=== PATIENT | female | born 2000 | race African-American/Black ===

== ENCOUNTER 2020-11-05 02:16 | Emergency (ER) | payer MEDICAID, SELFPAY ==
--- NOTE | ~2020-11-05 | CT_ITS ---
EXAMINATION: CT HEAD WITHOUT CONTRAST CLINICAL INFORMATION: Altered mental status. COMPARISON: None TECHNIQUE: Contiguous axial imaging was performed from the skull base to vertex without intravenous administration of contrast. This CT examination was performed using dose optimization techniques as appropriate, variously including the following: *Automated exposure control *Adjustment of mA and/or kV according to patient size (this includes techniques or standardized protocols for targeted exams where dose is matched to indication/reason for exam; i.e. extremities or head) *Use of iterative reconstruction technique DLP: 633 mGy-cm FINDINGS: No intracranial hemorrhage, tumors or acute infarcts are visualized. The ventricles and sulci are normal in size and configuration. No focal parenchymal lesions the brain or abnormal extra-axial fluid collections are identified. No gross extra cranial soft tissue inflammatory changes are noted. The orbits and globes are normal in appearance. No significant opacification of the visualized paranasal sinuses, mastoid air cells and middle ear cavities is identified. CT/CT head/brain wo con IMPRESSION: Normal unenhanced CT the head.
[2020-11-05 02:25] VITALS: BP 121/67; PULSE 100; RESP 20; O2SAT 99; BMI 29.2
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
[2020-11-05 02:40] LABS: MANUAL DIFF FLAG NO
[2020-11-05 02:41] LABS: Basophils Absolute Auto 0.1 X10*3/uL (0.0-0.2); Basophils Percent Auto 0.8 % (0-2); Eosinophils Absolute Auto 0.1 X10*3/uL (0.0-0.4); Eosinophils Percent Auto 1.6 % (0-4); Hematocrit 41.2 % (37-47); Hemoglobin 14.6 g/dl (12.0-16.0); Imm Gran Abs Auto 0.02 X10*3/uL (0.00-0.03); Imm Gran Pct Auto 0.3 % (0.0-0.4); Lymphocytes Absolute Auto 2.2 X10*3/uL (1.2-4.9); Lymphocytes Percent Auto 29.3 % (20-40); Mean Corpuscular HGB Conc 35.4 g/dl (31.0-35.0); Mean Corpuscular Hemoglobin 31.1 pg (27.0-33.0); Mean Corpuscular Volume 87.8 fL (80-98); Mean Platelet Volume 10.7 fL (9.4-12.3); Monocytes Absolute Auto 0.4 X10*3/uL (0.1-1.2); Monocytes Percent Auto 5.4 % (2-11); Neutrophils Absolute Auto 4.8 X10*3/uL (2.0-8.3); Neutrophils Percent Auto 62.6 % (45-73); Platelet Count 324 X10*3/uL (160-400); Red Blood Count 4.69 X10*6/uL (4.20-5.50); Red Cell Distribution Width 12.8 % (11.0-16.0); White Blood Count 7.6 X10*3/uL (4.8-10.8)
[2020-11-05 02:53] LABS: Ethanol 198 mg/dL
[2020-11-05 03:01] LABS: Acetaminophen LAB < 1 mcg/mL (<30); Alanine Aminotransferase 12 U/L (0-31); Alkaline Phosphatase 58 U/L (39-117); Anion Gap 24 (12-20); Aspartate Amino Transferase 32 U/L (5-31); Bilirubin Direct 0.3 mg/dL (0.0-0.5); Bilirubin Total 0.6 mg/dL (0.0-1.0); Blood Urea Nitrogen 7 mg/dL (9-16); Calcium 9.6 mg/dL (8.4-10.2); Carbon Dioxide 13 mmol/L (22-29); Chloride 109 mmol/L (96-108); Creatinine Clr Calc Pharmacy 117.1; Estimated Glomerular Filt Rate > 60; Glucose Random 101 mg/dL (60-115); Magnesium 2.1 mg/dL (1.6-2.6); Potassium 3.4 mmol/L (3.3-5.1); Salicylate < 5.0 mg/dL (15-30); Sodium 143 mmol/L (135-145)
[2020-11-05 03:04] LABS: HCG Quantitative < 2 mIU/mL
[2020-11-05] MEDS: ondansetron HCL 4 MG/2 ML VIAL IVPUSH (03:09)
[2020-11-05] MEDS: Lactated Ringers 1,000 ML 999 ML IV ×2 (03:16→04:37)
[2020-11-05 03:22] VITALS: BP 107/62; PULSE 87; RESP 22; TEMP 36.1; O2SAT 98
[2020-11-05 03:24] LABS: COVID-19 Test Negative (Negative); IDNOW Serial# 55D5AD1C
[2020-11-05 04:25] VITALS: BP 85/46; PULSE 110; RESP 20
[2020-11-05 04:37] VITALS: BP 99/55
--- NOTE | 2020-11-05 04:54 | PC.NURSE ---
PATIENT WAKING, ASKING WHY SHES NOT SEEING THE DOGS IF SHES IN THE HOSPITAL , ASKING IF SHE MEANT TO SAY DOCTORS , NO YOU DUMB BITCH . PATIENT HAS EYES DARTING AROUND THE ROOM. CONFUSED. SCREAMING I AM BLIND . TRYING TO GET OUT OF BED. TO BETTER ENABLE PATIENT TO WAKE UP MORE CONTROLLED. STATING SHE IS SCARED AND ANXIOUS. GIVEN ADDITIONAL MEDICATION ATIVAN TO HELP WITH THE SIDE EFFECTS OF KETAMINE PATIENT WAKES. ATTEMPT MADE TO CONTACT BOYFRIEND.
[2020-11-05] MEDS: LORazepam 2 MG/ML VIAL 1 MG IVPUSH (04:57)
--- NOTE | 2020-11-05 08:05 | PC.NURSE ---
Pt sleeping, sitter at bedside.
--- NOTE | 2020-11-05 08:35 | PC.NURSE ---
PT AWAKE AND STATING SHE IS NAUSEA, REQUESTING HER IV BE REMOVED. SHE IS AGITATED AT TIMES BUT CURRENTLY REDIRECTABLE
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
--- NOTE | 2020-11-05 11:09 | PC.NURSE ---
Anita BROWN called at 1100 with an ETA of after 12pm for evaluation
[2020-11-05] MEDS: Ondansetron ODT 4 MG TAB.RAPDIS TRANSLINGU (11:18)
[2020-11-05 11:53] LABS: Blood Urea Nitrogen 5 mg/dL (9-16); Calcium 9.7 mg/dL (8.4-10.2); Carbon Dioxide 22 mmol/L (22-29); Chloride 110 mmol/L (96-108); Creatinine Clr Calc Pharmacy 131.6; Estimated Glomerular Filt Rate > 60; Glucose Random 105 mg/dL (60-115); Sodium 143 mmol/L (135-145)
--- NOTE | 2020-11-05 11:58 | PC.NURSE ---
patient recieved visit from boyfriend, security had discussed with this ghost writer about safety of client, and t/w asked client to commit to safe behavior with visit present (not attempt elopement)
[2020-11-05 12:03] LABS: Anion Gap 18 (12-20); Potassium 4.3 mmol/L (3.3-5.1)
--- NOTE | 2020-11-05 15:12 | PC.NURSE ---
PATIENT IS IN ROOM MEETING WITH [facility] CLINICIAN WAITING FOR DISPOSITION FROM [facility]. PATIENT IS CALM AND COOPERATIVE AT THIS TIME.
== END 2020-11-05 15:49 | disposition home or self-care (01) ==
PROVIDERS: Emergency Provider Emergency Medicine; PCP Pediatrics Adolescent Medicine
DX: S50.811A Abrasion of right forearm, initial encounter (principal); S50.812A Abrasion of left forearm, initial encounter; R45.851 Suicidal ideations; F10.129 Alcohol abuse with intoxication, unspecified; G44.309 Post-traumatic headache, unspecified, not intractable; Y90.6 Blood alcohol level of 120-199 mg/100 ml; W26.9XXA Contact with unspecified sharp object(s), initial encounter; Y93.9 Activity, unspecified; Y92.9 Unspecified place or not applicable; Y99.9 Unspecified external cause status; Z20.822 Contact with and (suspected) exposure to COVID-19; Z79.899 Other long term (current) drug therapy
CPT/HCPCS: 36415; 70450; 80048; 80076; 80143; 80179; 82077; 83735; 84702; 85025; 87635; 96361; 96372; 96374; 96375; 99285; J2060; J2405

== ENCOUNTER 2020-11-20 15:29 | Inpatient (IN) | payer MEDICAID, SELFPAY ==
--- NOTE | ~2020-11-20 | CT_ITS ---
EXAMINATION: CT HEAD WITHOUT CONTRAST CLINICAL INFORMATION: Migraine. COMPARISON: None TECHNIQUE: Contiguous axial imaging was performed from the skull base to vertex without intravenous administration of contrast. This CT examination was performed using dose optimization techniques as appropriate, variously including the following: *Automated exposure control *Adjustment of mA and/or kV according to patient size (this includes techniques or standardized protocols for targeted exams where dose is matched to indication/reason for exam; i.e. extremities or head) *Use of iterative reconstruction technique DLP: 669 mGy-cm FINDINGS: There is no evidence of acute intracranial hemorrhage or territorial infarction. No abnormal mass effect or midline shift is seen. [place] to white matter differentiation is well preserved. No extra-axial fluid collections are identified. The ventricles are normal in size. There is no abnormal attenuation within the brain parenchyma. The osseous structures and soft tissues are normal. There is a small polyp or retention cyst left sphenoid sinus. Rest of the paranasal sinuses and mastoid air cells are well-aerated. CT/CT head/brain wo con IMPRESSION: No acute intracranial process seen. There is small polyp or retention cyst left sphenoid sinus.
--- NOTE | ~2020-11-20 | CT_ITS ---
EXAMINATION: CT ABDOMEN AND PELVIS WITHOUT CONTRAST CLINICAL INFORMATION: Abdominal pain. Vomiting. Elevated WBC. COMPARISON: None TECHNIQUE: Multidetector volumetric imaging was performed from the superior aspect of the liver through the pubic symphysis. Sagittal and coronal reformatted images were obtained on the technologist's workstation. This CT examination was performed using dose optimization techniques as appropriate, variously including the following: *Automated exposure control *Adjustment of mA and/or kV according to patient size (this includes techniques or standardized protocols for targeted exams where dose is matched to indication/reason for exam; i.e. extremities or head) *Use of iterative reconstruction technique DLP: 623 mGy-cm FINDINGS: LUNG BASES: The visualized lung bases are unremarkable. LIVER, GALLBLADDER, AND BILIARY TREE: The liver is normal in size, shape, and attenuation. No focal hepatic lesion or biliary ductal dilatation is present. The gallbladder is unremarkable with no evidence of radiopaque gallstones, gallbladder wall thickening, or obvious pericholecystic inflammatory changes. PANCREAS: Unremarkable. SPLEEN: Unremarkable. ADRENAL GLANDS: Unremarkable. KIDNEYS AND URETERS: The kidneys are normal in size, shape, and attenuation. No hydronephrosis, hydroureter, or calculi seen. No perinephric stranding. BLADDER: Unremarkable. GASTROINTESTINAL TRACT: The small and large bowel are unremarkable. The appendix is unremarkable. ABDOMINAL WALL: No significant hernia is appreciated. LYMPH NODES: Normal. VASCULAR: Unremarkable. PELVIC VISCERA: The uterus and adnexa are unremarkable. OSSEOUS STRUCTURES: Unremarkable. CT/CT abdomen pelvis wo con IMPRESSION: No acute findings in the abdomen or pelvis. No inflammatory changes.
--- NOTE | ~2020-11-20 | US_ITS ---
EXAMINATION: US ABDOMEN LIMITED CLINICAL INFORMATION: Abdominal pain and vomiting. Evaluate for gallbladder disease.. COMPARISON: CT abdomen from 11/20/2020 TECHNIQUE: Real-time imaging of the right upper quadrant abdominal viscera. FINDINGS: PANCREAS: The pancreatic tail is obscured by bowel gas. The visualized portions the pancreas are normal. LIVER: Normal. Liver has normal size, contour and echotexture. No focal hepatic lesion or intrahepatic bile duct dilatation. GALLBLADDER: Normal. The gallbladder is physiologically distended without evidence of stones, sludge, polyps, wall thickening or pericholecystic fluid. COMMON BILE DUCT: Normal in caliber measuring 0.3 cm in diameter. RIGHT KIDNEY: Normal. No hydronephrosis. No renal calculi or focal parenchymal lesions. The kidney measures 10.6 cm in maximum dimension. FREE FLUID: None. US/US abdomen limited IMPRESSION: Normal ultrasound examination of the right upper quadrant. No evidence of cholelithiasis or cholecystitis.
--- NOTE | ~2020-11-20 | XR_ITS ---
EXAMINATION: XR CHEST CLINICAL INFORMATION: Sepsis. COMPARISON: None TECHNIQUE: Frontal view of the chest was obtained. FINDINGS: No significant abnormality is noted involving the heart, lungs, mediastinum, bony thorax or soft tissues. XR/XR chest 1V IMPRESSION: Unremarkable chest examination.
[2020-11-20 16:39] VITALS: BP 116/61; PULSE 93; RESP 18; TEMP 38.2; O2SAT 99; BMI 31.7
[2020-11-20 17:12] LABS: Basophils Absolute Auto 0.1 X10*3/uL (0.0-0.2); Basophils Percent Auto 0.3 % (0-2); Hemoglobin 14.7 g/dl (12.0-16.0); Imm Gran Abs Auto 0.09 X10*3/uL (0.00-0.03); Imm Gran Pct Auto 0.5 % (0.0-0.4); Lymphocytes Percent Auto 5.5 % (20-40); MANUAL DIFF FLAG SCAN; Mean Corpuscular HGB Conc 35.9 g/dl (31.0-35.0); Mean Corpuscular Volume 86.5 fL (80-98); Mean Platelet Volume 10.7 fL (9.4-12.3); Monocytes Absolute Auto 1.7 X10*3/uL (0.1-1.2); Monocytes Percent Auto 8.9 % (2-11); Neutrophils Percent Auto 84.8 % (45-73); Platelet Count 248 X10*3/uL (160-400); Red Blood Count 4.74 X10*6/uL (4.20-5.50); Red Cell Distribution Width 12.7 % (11.0-16.0); SCAN SMEAR FLAG 1; White Blood Count 18.9 X10*3/uL (4.8-10.8)
[2020-11-20 17:23] LABS: Appearance Urine CLOUDY; Color Urine BROWN; Glucose Urine UA NEG (NEG); Leukocyte Esterase Urine TRACE (NEG); Nitrite Urine NEG (NEG); Specific Gravity - Urine 1.025 (1.005-1.025); UACC Culture Trigger YES; Urine Blood TRACE (NEG); Urine Ketones 40 MG/DL (NEG); Urine Protein 3+ MG/DL (NEG-TRACE)
[2020-11-20 17:27] LABS: Alanine Aminotransferase 33 U/L (0-31); Alkaline Phosphatase 70 U/L (39-117); Anion Gap 17 (12-20); Aspartate Amino Transferase 35 U/L (5-31); Bilirubin Total 2.1 mg/dL (0.0-1.0); Blood Urea Nitrogen 6 mg/dL (9-16); Calcium 10.1 mg/dL (8.4-10.2); Carbon Dioxide 21 mmol/L (22-29); Chloride 99 mmol/L (96-108); Creatinine Clr Calc Pharmacy 102.4; Estimated Glomerular Filt Rate > 60; Glucose Random 123 mg/dL (60-115); Potassium 3.4 mmol/L (3.3-5.1); Sodium 134 mmol/L (135-145); Total Protein 8.4 g/dL (6.5-8.0)
[2020-11-20 17:35] LABS: UPreg QC Valid YES; Urine Pregnancy NEGATIVE (NEGATIVE)
[2020-11-20 17:54] LABS: SLIDE REVIEW VERIFIED
[2020-11-20 17:56] LABS: Influenza A PCR NEGATIVE (Negative); Influenza B PCR NEGATIVE (Negative); Resp Syncy Virus RNA Qual PCR NEGATIVE (Negative); SARS COV2 PCR INHOUSE NEGATIVE (Negative)
[2020-11-20 18:41] LABS: Bacteria Urine 1+ /LPF; RBC Urine 0-2 /HPF (0); Squamous Epithelial Cell Urine 1+ /LPF; WBC Urine 0-2 /HPF (0-4)
--- NOTE | 2020-11-20 19:26 | ED.GENADULT ---
HPI - General Adult General Chief complaint: General Medical Stated complaint: Body aches/Vomiting Time Seen by Provider: 11/20/20 19:24 Source: patient Mode of arrival: ambulatory Limitations: no limitations History of Present Illness HPI narrative: 20-year-old female came in for evaluation of vomiting and abdominal pain. Symptoms started 3 days ago, with abdominal pain described as diffuse abdominal pain, dull aching moderate in severity but 5/10, pain is constant, associated with nausea and vomiting and fever. No relieving factor, no aggravating factor, never had these symptoms in the past. Related Data Allergies Allergy/AdvReac Type Severity Reaction Status Date / Time No Known Allergies Allergy Verified 11/20/20 16:39 Review of Systems Review of Systems: All other systems are reviewed and are negative Constitutional: Reports as per HPI and Reports no additional constitutional complaints Eyes: Reports as per HPI and Reports no additional eye complaints Reports system reviewed and no additional complaints, except as documented Cardiovascular: Reports as per HPI and Reports no additional cardiovascular complaints Respiratory: Reports as per HPI and Reports no additional respiratory complaints Gastrointestinal: Reports as per HPI and Reports no additional gastrointestinal complaints Genitourinary: Reports no additional female genitourinary complaints Musculoskeletal: Reports no additional musculoskeletal complaints Skin/Breast: Reports system reviewed and no additional complaints, except as docu Psychiatric: Reports no additional psychiatric complaints Endocrine: Reports no additional endocrine complaints Hematologic/Lymphatic: Reports no additional hematologic/lymphatic complaints Allergic/Immunologic: Reports no additional allergic/immunologic complaints Reports system reviewed and no additional complaints, except as documented and Reports Abnormal speech present [facility] Social History Social History Alcohol intake: unknown Patient Tobacco Use Status: Tobacco use Unknown Advance Directives: No Advance Directives Information Provided: Yes Physical Exam Vital Signs: Vital Signs: Last Vital Signs Temp 100.8 F H 11/20/20 16:39 Pulse 93 11/20/20 16:39 Resp 18 11/20/20 16:39 BP 116/61 11/20/20 16:39 Pulse Ox 99 11/20/20 16:39 Body Mass Index 31.7 Vital signs have been reviewed as appeared to be correct. Blood pressure normal. Heart rate normal. Respiration rate normal. Temperature (low-grade fever) Oxygen saturation normal. Appearance: Alert. Oriented X3. No acute distress. Head: Normal external exam. Normocephalic. Atraumatic. No Wei signs noted. No raccoon eyes noted Eyes: PERRLA. EOMI. Conjunctiva and sclera normal. Eyelids normal. ENT: TM's Normal. Pharynx normal. Uvula midline. Moist mucous membranes. No trismus noted. No drooling noted. No muffled voice noted. Neck: Normal inspection. Neck supple. FROM. No adenopathy. Thyroid Normal. No meningeal signs. No neck mass noted. CVS: Normal heart rate and rhythm. Heart sound normal. No murmurs noted. Pulses normal throughout. Respiratory: No respiratory distress. Painless inspiration. Breath sounds normal. No wheezes/rales/rhonchi noted. Chest nontender. No accessory muscle usage noted or decreased air movement noted. Abdomen: Soft and nontender. Bowel sounds normal in all 4 quadrants. No distention noted. No organomegaly noted. No visible injury noted. Back: No CVA tenderness. Full range of motion noted. Skin: Skin warm and dry. Normal skin color. Normal skin turgor. No rashes/lesions/lacerations noted. Extremities: No lower extremity edema. Extremities exhibit normal range of motion. Extremities nontender. Neuro: Oriented X 3. Cranial nerve exam: II-XII are grossly intact No motor deficit. No sensory deficit. Reflexes normal. Course Course Course Narrative: Assessment and plan. 20-year-old female came in with intractable vomiting, leukocytosis. Otherwise negative abdominal CT/abdominal ultrasound for an acute intra-abdominal pathology. Patient could not tolerate an attempt for PO challenge patient could not tolerate. Will admit the patient for IV hydration and intractable vomiting. Medical Decision Making Lab Data Lab results reviewed: Yes I reviewed the patient's lab results. Result diagrams: 11/20/20 16:59 11/20/20 16:59 Labs: Lab Results 11/20/20 11/20/20 11/20/20 Range/Units 16:56 16:59 16:59 WBC 18.9 H (4.8-10.8) X10*3/uL RBC 4.74 (4.20-5.50) X10*6/uL Hgb 14.7 (12.0-16.0) g/dl Hct 41.0 (37-47) % MCV 86.5 (80-98) fL MCH 31.0 (27.0-33.0) pg MCHC 35.9 H (31.0-35.0) g/dl RDW 12.7 (11.0-16.0) % Plt Count 248 (160-400) X10*3/uL MPV 10.7 (9.4-12.3) fL Immature Gran % (Auto) 0.5 H (0.0-0.4) % Neut % (Auto) 84.8 H (45-73) % Lymph % (Auto) 5.5 L (20-40) % [place] % (Auto) 8.9 (2-11) % Eos % (Auto) 0.0 (0-4) % Baso % (Auto) 0.3 (0-2) % Lymph # (Auto) 1.0 L (1.2-4.9) X10*3/uL [place] # (Auto) 1.7 H (0.1-1.2) X10*3/uL Eos # (Auto) 0.0 (0.0-0.4) X10*3/uL Baso # (Auto) 0.1 (0.0-0.2) X10*3/uL Abs Immat Gran (auto) 0.09 H (0.00-0.03) X10*3/uL Absolute Neuts (auto) 16.0 H (2.0-8.3) X10*3/uL Absolute Nucleated RBC 0.000 (0.0-0.012) X10*3/uL Nucleated RBC % (auto) 0.0 (0.0-0.2) /100WBC Smear Tech's Comments VERIFIED Sodium 134 L (135-145) mmol/L Potassium 3.4 D (3.3-5.1) mmol/L Chloride 99 (96-108) mmol/L Carbon Dioxide 21 L (22-29) mmol/L Anion Gap 17 (12-20) BUN 6 L (9-16) mg/dL Creatinine 0.91 (0.5-1.4) mg/dL Estim Creat Clear Calc 102.4 Estimated GFR > 60 Random Glucose 123 H (60-115) mg/dL Calcium 10.1 (8.4-10.2) mg/dL Total Bilirubin 2.1 H (0.0-1.0) mg/dL AST 35 H (5-31) U/L ALT 33 H (0-31) U/L Alkaline Phosphatase 70 D (39-117) U/L Total Protein 8.4 H (6.5-8.0) g/dL Albumin 5.0 (3.5-5.0) g/dL Urine Color Urine Appearance Urine pH (5.0-8.0) Ur Specific [place] (1.005-1.025) Urine Protein (NEG-TRACE) MG/DL Urine Glucose (UA) (NEG) MG/DL Urine Ketones (NEG) MG/DL Urine Blood (NEG) Urine Nitrite (NEG) Ur Leukocyte Esterase (NEG) Urine RBC (0) /HPF Urine WBC (0-4) /HPF Ur Squamous Epith Cells /LPF Urine Bacteria /LPF Urine Test (NEGATIVE) Coronavirus (PCR) NEGATIVE (Negative) Influenza Type A (PCR) NEGATIVE (Negative) Influenza Type B (PCR) NEGATIVE (Negative) RSV RNA Qual (PCR) NEGATIVE (Negative) 11/20/20 11/20/20 Range/Units 17:06 17:06 WBC (4.8-10.8) X10*3/uL RBC (4.20-5.50) X10*6/uL Hgb (12.0-16.0) g/dl Hct (37-47) % MCV (80-98) fL MCH (27.0-33.0) pg MCHC (31.0-35.0) g/dl RDW (11.0-16.0) % Plt Count (160-400) X10*3/uL MPV (9.4-12.3) fL Immature Gran % (Auto) (0.0-0.4) % Neut % (Auto) (45-73) % Lymph % (Auto) (20-40) % [place] % (Auto) (2-11) % Eos % (Auto) (0-4) % Baso % (Auto) (0-2) % Lymph # (Auto) (1.2-4.9) X10*3/uL [place] # (Auto) (0.1-1.2) X10*3/uL Eos # (Auto) (0.0-0.4) X10*3/uL Baso # (Auto) (0.0-0.2) X10*3/uL Abs Immat Gran (auto) (0.00-0.03) X10*3/uL Absolute Neuts (auto) (2.0-8.3) X10*3/uL Absolute Nucleated RBC (0.0-0.012) X10*3/uL Nucleated RBC % (auto) (0.0-0.2) /100WBC Smear Tech's Comments Sodium (135-145) mmol/L Potassium (3.3-5.1) mmol/L Chloride (96-108) mmol/L Carbon Dioxide (22-29) mmol/L Anion Gap (12-20) BUN (9-16) mg/dL Creatinine (0.5-1.4) mg/dL Estim Creat Clear Calc Estimated GFR Random Glucose (60-115) mg/dL Calcium (8.4-10.2) mg/dL Total Bilirubin (0.0-1.0) mg/dL AST (5-31) U/L ALT (0-31) U/L Alkaline Phosphatase (39-117) U/L Total Protein (6.5-8.0) g/dL Albumin (3.5-5.0) g/dL Urine Color BROWN Urine Appearance CLOUDY Urine pH 6.0 (5.0-8.0) Ur Specific [place] 1.025 (1.005-1.025) Urine Protein 3+ H (NEG-TRACE) MG/DL Urine Glucose (UA) NEG (NEG) MG/DL Urine Ketones 40 (NEG) MG/DL Urine Blood TRACE (NEG) Urine Nitrite NEG (NEG) Ur Leukocyte Esterase TRACE H (NEG) Urine RBC 0-2 (0) /HPF Urine WBC 0-2 (0-4) /HPF Ur Squamous Epith Cells 1+ /LPF Urine Bacteria 1+ /LPF Urine Test NEGATIVE (NEGATIVE) Coronavirus (PCR) (Negative) Influenza Type A (PCR) (Negative) Influenza Type B (PCR) (Negative) RSV RNA Qual (PCR) (Negative) Imaging Data CT scan - abdomen: Radiologist's impression: No acute findings in the abdomen or pelvis. No inflammatory changes.? US - abdomen: Radiologist's impression: Normal ultrasound examination of the right upper quadrant. No evidence of cholelithiasis or cholecystitis. Discharge Plan Discharge Clinical Impression: Intractable vomiting, Leukocytosis Patient Disposition: Admitted As Inpatient
--- NOTE | 2020-11-20 19:44 | PC.NURSE ---
20g placed in left AC, PT transferred CT scan. PT to be medicated per MAR upon return from CT.
[2020-11-20] MEDS: ondansetron HCL 4 MG/2 ML VIAL IVPUSH (19:53)
[2020-11-20] MEDS: Famotidine/PF 20 MG/2 ML VIAL IVPUSH (19:53)
[2020-11-20] MEDS: 0.9 % Sodium Chloride 1,000 ML 999 ML IVCONT (19:53)
--- NOTE | 2020-11-20 19:57 | PC.NURSE ---
PT medicated per APR. PT waiting for ultrasound.
[2020-11-20] MEDS: Ketorolac Tromethamine 15 MG/ML VIAL 30 MG IVPUSH (21:27)
--- NOTE | 2020-11-20 21:30 | PC.NURSE ---
PT medicated per MAR for pain. Reports 10/10 migraine pain. Nurse to reassess in 15 minutes.
--- NOTE | 2020-11-20 23:52 | P.HPHOSP_ITS ---
History of Present Illness Date of Service: 11/20/20 Chief Complaint: abdominal pain, N/V This is a 20-year-old female with no significant past medical history presents to the hospital with complaints of intractable vomiting as well as abdominal pain. Patient reports her symptoms started 3 days ago, she has significant nausea vomiting, migraine headache,, she is complaining of epigastric abdominal pain that started around the same time. Reports that her vomiting is nonbloody, she denies any history of heartburn. The abdominal pain is severe, 10/10, nonradiating, constant, relieved with pain medication, and worsened with anything that she eats. patient denies using any [id number] NSAIDs, denies history of drug use, no alcohol use. She denies any chest pain, no shortness of breath, no cough, no diarrhea constipation, no urinary symptoms including no dysuria no frequency and urgency. And no lower extremity edema. She denies the possibility of being . Denies any vaginal discharge. On arrival to the ED patient hemodynamically stable with a temp of 100.8, heart rate of 93, respiratory rate of 18, blood pressure 116/61, satting 99% on room air, she did eventually develop a fever 103.2, heart rate of 110, respiratory rate of 112, 18.9, sodium of 134, AST of 35, ALT of 33, bili of 2.1, UA that is positive for trace leukocyte Estrace no WBC and no nitrites, COVID-19 negative Patient underwent both abdominal pelvic CT as well as ultrasound of the abdomen showed no acute findings in the abdomen or pelvis, and normal ultrasound exam Given her sepsis patient will be admitted for further management Review of Systems Review of Systems: Yes all other systems are reviewed and are negative [facility] Medical History (Updated 11/21/20 @ 06:23 by Nir Valentino MD) No significant past medical history Pertinent family history: No family history of any pertinent past medical issues Surgical History (Updated 11/21/20 @ 06:22 by Nir Valentino MD) No significant past surgical history Social History (Updated 11/21/20 @ 06:22 by Nir Valentino MD) Alcohol intake: current Patient Tobacco Use Status: Current someday Tobacco user Use of substances other than those prescribed or required for medical reasons: No Advance Directives: No Advance Directives Information Provided: Yes Meds Allergies Allergy/AdvReac Type Severity Reaction Status Date / Time No Known Allergies Allergy Verified 11/20/20 16:39 Home Medications Medication Instructions Recorded Confirmed Last Taken Type No Known Home Meds 11/21/20 11/21/20 Unknown History Physical Exam Vital Signs and Narrative: Vital Signs: Last Vital Signs Temp 100.8 F H 11/20/20 16:39 Pulse 93 11/20/20 16:39 Resp 18 11/20/20 16:39 BP 116/61 11/20/20 16:39 Pulse Ox 99 11/20/20 16:39 Body Mass Index 31.7 Results Labs CBC and Chem 7: 11/20/20 16:59 11/20/20 16:59 Labs: Laboratory Results - last 24 hr 11/20/20 11/20/20 11/20/20 16:56 16:59 16:59 MCV 86.5 MCH 31.0 MCHC 35.9 H RDW 12.7 Plt Count 248 MPV 10.7 Immature Gran % (Auto) 0.5 H Neut % (Auto) 84.8 H Lymph % (Auto) 5.5 L Graves % (Auto) 8.9 Eos % (Auto) 0.0 Baso % (Auto) 0.3 Lymph # (Auto) 1.0 L Graves # (Auto) 1.7 H Eos # (Auto) 0.0 Baso # (Auto) 0.1 Abs Immat Gran (auto) 0.09 H Absolute Neuts (auto) 16.0 H Absolute Nucleated RBC 0.000 Nucleated RBC % (auto) 0.0 Smear Tech's Comments VERIFIED Anion Gap 17 Estim Creat Clear Calc 102.4 Estimated GFR > 60 Random Glucose 123 H Calcium 10.1 Total Bilirubin 2.1 H AST 35 H ALT 33 H Alkaline Phosphatase 70 D Total Protein 8.4 H Albumin 5.0 Urine Color Urine Appearance Urine pH Ur Specific [place] Urine Protein Urine Glucose (UA) Urine Ketones Urine Blood Urine Nitrite Ur Leukocyte Esterase Urine RBC Urine WBC Ur Squamous Epith Cells Urine Bacteria Urine Test Coronavirus (PCR) NEGATIVE Influenza Type A (PCR) NEGATIVE Influenza Type B (PCR) NEGATIVE RSV RNA Qual (PCR) NEGATIVE 11/20/20 11/20/20 17:06 17:06 MCV MCH MCHC RDW Plt Count MPV Immature Gran % (Auto) Neut % (Auto) Lymph % (Auto) Graves % (Auto) Eos % (Auto) Baso % (Auto) Lymph # (Auto) Graves # (Auto) Eos # (Auto) Baso # (Auto) Abs Immat Gran (auto) Absolute Neuts (auto) Absolute Nucleated RBC Nucleated RBC % (auto) Smear Tech's Comments Anion Gap Estim Creat Clear Calc Estimated GFR Random Glucose Calcium Total Bilirubin AST ALT Alkaline Phosphatase Total Protein Albumin Urine Color BROWN Urine Appearance CLOUDY Urine pH 6.0 Ur Specific [place] 1.025 Urine Protein 3+ H Urine Glucose (UA) NEG Urine Ketones 40 Urine Blood TRACE Urine Nitrite NEG Ur Leukocyte Esterase TRACE H Urine RBC 0-2 Urine WBC 0-2 Ur Squamous Epith Cells 1+ Urine Bacteria 1+ Urine Test NEGATIVE Coronavirus (PCR) Influenza Type A (PCR) Influenza Type B (PCR) RSV RNA Qual (PCR) Imaging Radiologist's Impressions: Impressions Abdomen Ultrasound 11/20/20 19:24 IMPRESSION: Normal ultrasound examination of the right upper quadrant. No evidence of cholelithiasis or cholecystitis. Abdomen/Pelvis CT 11/20/20 19:24 IMPRESSION: No acute findings in the abdomen or pelvis. No inflammatory changes. Assessment and Plan (1) Sepsis: Status: Acute (2) Intractable vomiting: Status: Acute (3) Abdominal pain with vomiting: Status: Acute 20-year-old with no significant past medical history presents to the hospital with complaints of abdominal pain and intractable nausea vomiting found to have sepsis # sepsis - unclear etiology - abdominal CT and pelvic negative, UA shows trace leukocyte Estrace with no significant WBC count, patient denies any urinary symptoms - meningitis cannot be ruled out, although has no neck stiffness but has migraine headache - at this time will start her on broad-spectrum IV antibiotics - blood cultures - IV fluids - follow cultures - will obtain chest x-ray although COVID-19 negative and patient denies any respiratory symptoms - if patient continues to be symptomatic consider LP # abdominal pain and vomiting - possibly secondary to gastritis - IV fluids - antiemetics - supportive measures DVT prophylaxis: Lovenox Quality Stroke Does the patient have a stroke diagnosis?: No VTE Prior VTE?: No VTE Risk Level:: Medical - moderate - high VTE Device Contraindication: Treatment Not Indicated VTE Drug Contraindication: N/A - Med Ordered
[2020-11-21] VITALS (7 sets, daily range): BP systolic 96–117; BP diastolic 47–68; PULSE 75–110; RESP 17–112; TEMP 36.4–39.6; O2SAT 98–100
--- NOTE | 2020-11-21 00:32 | PC.NURSE ---
This communications writer confirmed with PT that she is not on any home meds.
[2020-11-21] MEDS: Lactated Ringers 1,000 ML 80 ML IVCONT (01:42)
[2020-11-21] MEDS: Acetaminophen 325 MG TABLET 650 MG PO ×2 (01:42→07:25)
[2020-11-21] MEDS: Piperacillin Sodium/Tazobactam 3.375 GM in 0.9 % Sodium Chloride 50 ML IV (01:44)
[2020-11-21] MEDS: Omeprazole 40 MG CAPSULE.DR PO ×2 (01:46→06:09)
[2020-11-21 01:48] LABS: Lactic Acid 1.8 mmol/L (0.5-2.0)
--- NOTE | 2020-11-21 01:56 | PC.NURSE ---
PT medicated for elevated temperature. Cultures and labs drawn. Fluids and antibiotics running at this time. PT is waiting to be transferred to medical floor. PT tolerated PO challenge well. No nausea and vomiting at this time.
[2020-11-21] MEDS: vancomycin HCL 1,500 MG in 0.9 % Sodium Chloride 500 ML 333.33 MG IV (03:28)
[2020-11-21 06:06] LABS: MANUAL DIFF FLAG NO
[2020-11-21 06:25] LABS: Basophils Absolute Auto 0.1 X10*3/uL (0.0-0.2); Basophils Percent Auto 0.3 % (0-2); Hematocrit 36.9 % (37-47); Hemoglobin 12.6 g/dl (12.0-16.0); Imm Gran Abs Auto 0.06 X10*3/uL (0.00-0.03); Imm Gran Pct Auto 0.4 % (0.0-0.4); Lymphocytes Absolute Auto 1.2 X10*3/uL (1.2-4.9); Lymphocytes Percent Auto 8.4 % (20-40); Mean Corpuscular HGB Conc 34.1 g/dl (31.0-35.0); Mean Corpuscular Hemoglobin 30.7 pg (27.0-33.0); Mean Corpuscular Volume 89.8 fL (80-98); Mean Platelet Volume 11.1 fL (9.4-12.3); Monocytes Absolute Auto 1.4 X10*3/uL (0.1-1.2); Monocytes Percent Auto 9.6 % (2-11); Neutrophils Absolute Auto 11.8 X10*3/uL (2.0-8.3); Neutrophils Percent Auto 81.3 % (45-73); Platelet Count 219 X10*3/uL (160-400); Red Blood Count 4.11 X10*6/uL (4.20-5.50); White Blood Count 14.5 X10*3/uL (4.8-10.8)
[2020-11-21] MEDS: Lactated Ringers 1,000 ML 999 ML IV (06:36)
[2020-11-21 06:46] LABS: Anion Gap 13 (12-20); Blood Urea Nitrogen 7 mg/dL (9-16); Calcium 8.4 mg/dL (8.4-10.2); Carbon Dioxide 23 mmol/L (22-29); Chloride 104 mmol/L (96-108); Creatinine Clr Calc Pharmacy 101.3; Estimated Glomerular Filt Rate > 60; Glucose Random 107 mg/dL (60-115); Potassium 3.9 mmol/L (3.3-5.1); Sodium 136 mmol/L (135-145)
[2020-11-21] MEDS: cefEPime HCl 2 GM in 0.9 % Sodium Chloride 50 ML IV (07:15)
[2020-11-21] MEDS: Ampicillin Sodium/Sulbactam Na 3 GM in 0.9 % Sodium Chloride 100 ML IV (07:15)
[2020-11-21] MEDS: 0.9 % Sodium Chloride Flush 3 ML SYRINGE IVFLUSH ×2 (07:16→16:55)
--- NOTE | 2020-11-21 07:23 | PHA.PROG ---
Admission Date/Time: November 20, 2020 23:44 Indication: Sepsis Weight in k.915 kg Adjusted body weight in K.39 kg [place] body weight in K.7 kg Serum Creatinine - Last 168 Hours 11/20/20 11/21/20 16:59 05:42 Creatinine 0.91 0.92 Estimated CrCl and GFR - Last 168 Hours 11/20/20 11/21/20 16:59 05:42 Estim Creat Clear Calc 102.4 101.3 Estimated GFR > 60 > 60 Vancomycin Loading Dose: 1500 mg on 11/21 @ 0328 Current Vancomycin Dosing Regimen: 1500 mg Q12H - this would create an expected AUC 625 Date and Time for next Vancomycin Level to be drawn: 11/22 @ 1400 Pharmacist Comments on Vancomycin Plan: Start 1250 mg Q12H starting 11/21 @ 1500. The expected AUC 522 with a trough of 15.9 Trough to be drawn before the 4th dose at 11/22 @ 1400 Will Monitor SCr daily and adjust accordingly Linsey Easley PharmD Vancomycin dosing will take advantage of [employer] as a clinical decision support tool that uses Bayesian modeling to calculate individual patient's pharmacokinetic parameters and forecast the patient's drug concentration time course with the target goal AUC 24 range of 400 - 600 mg/L/hr.
[2020-11-21] MEDS: Enoxaparin Sodium 40 MG/0.4 ML SYRINGE SUBCUT (07:26)
--- NOTE | 2020-11-21 12:26 | W.PM.IDCN ---
History of Present Illness Data of Consult Service Date: 11/21/20 Requesting physician: Shari Veliz Primary Care Provider: Yani Prieto MD HPI Reason for consult: sepsis,with fever and tachycardia She presents to hospital with nausea and vomiting for three days. tests are negative. She has suprapubic pain,6/10 ,not sure vaginal discharge. She has dysuria at this time Urine 10-50,[address] abdomen and pelvis unremarkable Review of Systems Review of Systems: Yes all other systems are reviewed and are negative PMFSH Past Medical History Medical History No significant past medical history Family History Family history: reviewed and not pertinent Surgical History Surgical History (Updated 11/21/20 @ 06:22 by Nir Valentino MD) No significant past surgical history Social History Social History Alcohol intake: current Patient Tobacco Use Status: Current someday Tobacco user Use of substances other than those prescribed or required for medical reasons: No Advance Directives: No Advance Directives Information Provided: Yes Meds Allergies Allergy/AdvReac Type Severity Reaction Status Date / Time No Known Allergies Allergy Verified 11/20/20 16:39 Active Medications: Current Medications Acetaminophen (Acetaminophen 325 Mg Tablet) 650 mg PO Q6H PRN PRN Reason: Pain, Mild (Pain Scale 1-3) Last Admin: 11/21/20 07:25 Dose: 650 mg Documented by: Al Hydroxide/Mg Hydroxide (Magnesium Hydrox/Alum Hydrox 30 Ml Oral.Susp) 15 ml PO Q4H PRN PRN Reason: abdominal pain Docusate Sodium (Docusate Sodium 100 Mg Capsule) 100 mg PO DAILY PRN PRN Reason: Constipation Enoxaparin Sodium (Enoxaparin Sodium 40 Mg/0.4 Ml Syringe) 40 mg SUBCUT Q24H [facility] Last Admin: 11/21/20 07:26 Dose: 40 mg Documented by: Lactated Ringer's (Lr) 1,000 mls @ 80 mls/hr IVCONT .[id number] [facility] Last Infusion: 11/21/20 06:45 Dose: 0 mls/hr Documented by: Omeprazole (Omeprazole 40 Mg Capsule.) 40 mg PO DAILY@0630 [facility] Last Admin: 11/21/20 06:09 Dose: 40 mg Documented by: Ondansetron HCl (Ondansetron Hcl 4 Mg/2 Ml Vial) 4 mg IVPUSH Q8H PRN PRN Reason: Nausea and Vomiting Oxycodone HCl (Oxycodone Hcl Immed Release 5 Mg Tablet) 5 mg PO Q6H PRN PRN Reason: Pain, Severe (Pain Scale 7-10) Pharmacy Consult (Consult Rx Vancomycin Dosing) 1 each MISCELLANE DAILY PRN PRN Reason: Consult order Sodium Chloride (0.9 % Sodium Chloride Flush 3 Ml Syringe) 3 ml IVFLUSH QSHIFT [facility] Last Admin: 11/21/20 07:16 Dose: 3 ml Documented by: Home Medications Medication Instructions Recorded Confirmed Last Taken Type No Known Home Meds 11/21/20 11/21/20 Unknown History Physical Exam Vital Signs: Vital Signs: Last Vital Signs Temp 98.4 F 11/21/20 11:37 Pulse 91 11/21/20 11:37 Resp 18 11/21/20 11:37 BP 99/51 L 11/21/20 11:37 Pulse Ox 99 11/21/20 11:37 Body Mass Index 31.7 Const: General: cooperative Eyes: General: appearance normal, both eyes and all related structures Resp: Effort & Inspection: normal respiratory effort Cardio: Rate: regular rate Rhythm: regular rhythm GI: Palpation (GI): Soft to palpation and Tenderness to palpation present (GI) periumbilically Skin: General skin exam: no rashes or lesions noted Extrem: General: Yes normal to inspection Results Labs CBC & Chem 7: 11/21/20 05:42 11/21/20 05:42 Labs: Short CBC 11/20/20 11/21/20 Range/Units 16:59 05:42 WBC 18.9 H 14.5 H (4.8-10.8) X10*3/uL Hgb 14.7 12.6 (12.0-16.0) g/dl Hct 41.0 36.9 L (37-47) % Plt Count 248 219 (160-400) X10*3/uL BMP 11/20/20 11/21/20 16:59 05:42 Sodium 134 L 136 Potassium 3.4 D 3.9 Chloride 99 104 Carbon Dioxide 21 L 23 BUN 6 L 7 L Creatinine 0.91 0.92 Calcium 10.1 8.4 D Liver Function 11/20/20 Range/Units 16:59 Total Bilirubin 2.1 H (0.0-1.0) mg/dL AST 35 H (5-31) U/L ALT 33 H (0-31) U/L Alkaline Phosphatase 70 D (39-117) U/L Albumin 5.0 (3.5-5.0) g/dL Urine 11/20/20 Range/Units 17:06 Urine Color BROWN Urine Appearance CLOUDY Urine pH 6.0 (5.0-8.0) Ur Specific [place] 1.025 (1.005-1.025) Urine Protein 3+ H (NEG-TRACE) MG/DL Urine Glucose (UA) NEG (NEG) MG/DL Microbiology Microbiology Results: Microbiology 11/20/20 Unknown Urine clean catch - Urine edwards top Urine Culture - Preliminary Gram negative raheel Assessment and Plan (1) Sepsis: Status: Acute The symptoms are likely due to urinary tract infection Less likely are PID symptoms Headache is resolved and there are no meningeal signs Urine culture is gram negative Would stop Ampicillin,Vancomycin and Cefepime Give Ceftriaxone 1 g IV daily for now and await cultures and give 10 days total antibiotics and switch to po on discharge (2) Abdominal pain with vomiting: Status: Acute (3) Leukocytosis: Status: Acute
[2020-11-21] MEDS: cefTRIAXone sodium 1 GM in 0.9 % Sodium Chloride 50 ML IV (12:54)
[2020-11-21] MEDS: ondansetron HCL 4 MG/2 ML VIAL IVPUSH (12:54)
--- NOTE | 2020-11-21 13:46 | HO.PM.IMPN ---
Subjective Subjective Date of Service: 11/21/20 Interval History: Patient being followed for sepsis, complaining of headache and photophobia, also complained of dysuria and urinary frequency, feels cold and chilly but no fevers this a.m. denies neck stiffness or rigidity. Review of Systems General headache, no dizziness, chills. CVS no chest pain, no palpitation. Respiratory no cough, no sputum production, no respiratory distress. Gastrointestinal complain of nausea, no vomiting, lower abdominal discomfort Skin denies rash Physical Exam Vital Signs: Vital Signs: Last Vital Signs Temp 98.4 F 11/21/20 11:37 Pulse 91 11/21/20 11:37 Resp 18 11/21/20 11:37 BP 99/51 L 11/21/20 11:37 Pulse Ox 99 11/21/20 11:37 Body Mass Index 31.7 General axox3 , no acute distress. Neck supple ,no JVD. CVS regular rate rhythm, Respiratory lungs clear to auscultation, no respiratory distress, no wheeze, no rhonchi. Gastrointestinal abdomen soft, no right upper quadrant tenderness, mild lower abdominal tenderness with deep palpation, no guarding , no rigidity. Extremities no edema. Neuro nonfocal Skin no rash Psych appropriate affect Objective Data Active Medications Acetaminophen (Acetaminophen 325 Mg Tablet) 650 mg PO Q6H PRN PRN Reason: Pain, Mild (Pain Scale 1-3) Last Admin: 11/21/20 07:25 Dose: 650 mg Documented by: RAMON Al Hydroxide/Mg Hydroxide (Magnesium Hydrox/Alum Hydrox 30 Ml Oral.Susp) 15 ml PO Q4H PRN PRN Reason: abdominal pain Docusate Sodium (Docusate Sodium 100 Mg Capsule) 100 mg PO DAILY PRN PRN Reason: Constipation Enoxaparin Sodium (Enoxaparin Sodium 40 Mg/0.4 Ml Syringe) 40 mg SUBCUT Q24H [facility] Last Admin: 11/21/20 07:26 Dose: 40 mg Documented by: RAMON Lactated Ringer's (Lr) 1,000 mls @ 80 mls/hr IVCONT .[id number] [facility] Last Infusion: 11/21/20 12:27 Dose: 80 mls/hr Documented by: BORIS Ceftriaxone Sodium 1 gm/ (Sodium Chloride) 50 mls @ 100 mls/hr IV Q24H [facility] Last Infusion: 11/21/20 13:31 Dose: 0 mls/hr Documented by: RAMON Omeprazole (Omeprazole 40 Mg Capsule.Dr) 40 mg PO DAILY@0630 [facility] Last Admin: 11/21/20 06:09 Dose: 40 mg Documented by: ANGELO Ondansetron HCl (Ondansetron Hcl 4 Mg/2 Ml Vial) 4 mg IVPUSH Q8H PRN PRN Reason: Nausea and Vomiting Last Admin: 11/21/20 12:54 Dose: 4 mg Documented by: BORIS Oxycodone HCl (Oxycodone Hcl Immed Release 5 Mg Tablet) 5 mg PO Q6H PRN PRN Reason: Pain, Severe (Pain Scale 7-10) Pharmacy Consult (Consult Rx Vancomycin Dosing) 1 each MISCELLANE DAILY PRN PRN Reason: Consult order Sodium Chloride (0.9 % Sodium Chloride Flush 3 Ml Syringe) 3 ml IVFLUSH QSHIFT [facility] Last Admin: 11/21/20 07:16 Dose: 3 ml Documented by: RAMON Labs CBC & Chem 7: 11/21/20 05:42 11/21/20 05:42 Labs: Laboratory Results - last 24 hr 11/20/20 11/20/20 11/20/20 16:56 16:59 16:59 MCV 86.5 MCH 31.0 MCHC 35.9 H RDW 12.7 Plt Count 248 MPV 10.7 Immature Gran % (Auto) 0.5 H Neut % (Auto) 84.8 H Lymph % (Auto) 5.5 L [place] % (Auto) 8.9 Eos % (Auto) 0.0 Baso % (Auto) 0.3 Lymph # (Auto) 1.0 L [place] # (Auto) 1.7 H Eos # (Auto) 0.0 Baso # (Auto) 0.1 Abs Immat Gran (auto) 0.09 H Absolute Neuts (auto) 16.0 H Absolute Nucleated RBC 0.000 Nucleated RBC % (auto) 0.0 Smear Tech's Comments VERIFIED Anion Gap 17 Estim Creat Clear Calc 102.4 Estimated GFR > 60 Random Glucose 123 H Lactic Acid Calcium 10.1 Total Bilirubin 2.1 H AST 35 H ALT 33 H Alkaline Phosphatase 70 D Total Protein 8.4 H Albumin 5.0 Urine Color Urine Appearance Urine pH Ur Specific [place] Urine Protein Urine Glucose (UA) Urine Ketones Urine Blood Urine Nitrite Ur Leukocyte Esterase Urine RBC Urine WBC Ur Squamous Epith Cells Urine Bacteria Urine Test Coronavirus (PCR) NEGATIVE Influenza Type A (PCR) NEGATIVE Influenza Type B (PCR) NEGATIVE RSV RNA Qual (PCR) NEGATIVE 11/20/20 11/20/20 11/21/20 17:06 17:06 01:30 MCV MCH MCHC RDW Plt Count MPV Immature Gran % (Auto) Neut % (Auto) Lymph % (Auto) [place] % (Auto) Eos % (Auto) Baso % (Auto) Lymph # (Auto) [place] # (Auto) Eos # (Auto) Baso # (Auto) Abs Immat Gran (auto) Absolute Neuts (auto) Absolute Nucleated RBC Nucleated RBC % (auto) Smear Tech's Comments Anion Gap Estim Creat Clear Calc Estimated GFR Random Glucose Lactic Acid 1.8 Calcium Total Bilirubin AST ALT Alkaline Phosphatase Total Protein Albumin Urine Color BROWN Urine Appearance CLOUDY Urine pH 6.0 Ur Specific [place] 1.025 Urine Protein 3+ H Urine Glucose (UA) NEG Urine Ketones 40 Urine Blood TRACE Urine Nitrite NEG Ur Leukocyte Esterase TRACE H Urine RBC 0-2 Urine WBC 0-2 Ur Squamous Epith Cells 1+ Urine Bacteria 1+ Urine Test NEGATIVE Coronavirus (PCR) Influenza Type A (PCR) Influenza Type B (PCR) RSV RNA Qual (PCR) 11/21/20 11/21/20 05:42 05:42 MCV 89.8 MCH 30.7 MCHC 34.1 RDW 13.0 Plt Count 219 MPV 11.1 Immature Gran % (Auto) 0.4 Neut % (Auto) 81.3 H Lymph % (Auto) 8.4 L [place] % (Auto) 9.6 Eos % (Auto) 0.0 Baso % (Auto) 0.3 Lymph # (Auto) 1.2 [place] # (Auto) 1.4 H Eos # (Auto) 0.0 Baso # (Auto) 0.1 Abs Immat Gran (auto) 0.06 H Absolute Neuts (auto) 11.8 H Absolute Nucleated RBC 0.000 Nucleated RBC % (auto) 0.0 Smear Tech's Comments Anion Gap 13 Estim Creat Clear Calc 101.3 Estimated GFR > 60 Random Glucose 107 Lactic Acid Calcium 8.4 D Total Bilirubin AST ALT Alkaline Phosphatase Total Protein Albumin Urine Color Urine Appearance Urine pH Ur Specific [place] Urine Protein Urine Glucose (UA) Urine Ketones Urine Blood Urine Nitrite Ur Leukocyte Esterase Urine RBC Urine WBC Ur Squamous Epith Cells Urine Bacteria Urine Test Coronavirus (PCR) Influenza Type A (PCR) Influenza Type B (PCR) RSV RNA Qual (PCR) Microbiology Microbiology Results: Microbiology 11/20/20 Unknown Urine Culture - Preliminary Urine clean catch - Urine edwards top Gram negative raheel Assessment and Plan (1) Sepsis: Status: Acute (2) UTI (urinary tract infection): Status: Acute (3) Abdominal pain with vomiting: Status: Acute (4) Leukocytosis: Status: Acute Assessment and Plan: 20-year-old with no significant past medical history presents to the hospital with complaints of abdominal pain and intractable nausea vomiting found to have sepsis # sepsis due to urinary tract infection Persistent headache chills and lower abdominal pain, with symptoms of dysuria and frequency abdominal CT and pelvic negative, chest x-ray benign, abdominal ultrasound reviewed showed no evidence of gallbladder disease, UA shows trace leukocyte Estrace , 1+ bacteria Urine culture growing Gram-negative rods Case discussed with ID less likely patient has meningitis or PID, has history of chronic headaches Will DC vancomycin, ampicillin and cefepime and place patient on IV ceftriaxone follow final blood culture Will follow final urine and blood cultures Will place patient on regular diet and DC IV fluids # abdominal pain and vomiting - possibly due to UTI continue as needed antiemetics # intractable headache Has history of chronic headache, Will place on as needed Fioricet. DC oxycodone DVT prophylaxis:? Early ambulation Quality Stroke Does the patient have a stroke diagnosis?: No VTE Prior VTE?: No VTE Risk Level:: Medical - moderate - high VTE Device Contraindication: Treatment Not Indicated VTE Drug Contraindication: N/A - Med Ordered
--- NOTE | 2020-11-21 14:28 | MHC.CM.PN ---
CM MET WITH PT AND HER S/O WHO WAS AT BEDSIDE PT LIVES WITH S/O INDEPENDENT WITH ALL CARE PT HAS NO DME OR SERVICES PT DOES NOT HAVE A HCP, DECLINES TO COMPLETE ONE TODAY PT CONFIRMS PCP IS [facility] CURRENT DC PLAN IS HOME WITH NO SERVICES S/O TO TRANSPORT
[2020-11-21] MEDS: Butalb/Acetamin/Caff 50/325/40 TABLET 1 TAB PO (17:54)
[2020-11-22] VITALS (7 sets, daily range): BP systolic 82–109; BP diastolic 39–54; PULSE 69–98; RESP 16–18; TEMP 36.2–38.2; O2SAT 98–100
[2020-11-22] MEDS: 0.9 % Sodium Chloride Flush 3 ML SYRINGE IVFLUSH ×4 (01:33→16:43)
[2020-11-22] MEDS: ondansetron HCL 4 MG/2 ML VIAL IVPUSH (02:09)
[2020-11-22 06:48] LABS: Basophils Absolute Auto 0.1 X10*3/uL (0.0-0.2); Basophils Percent Auto 0.4 % (0-2); Eosinophils Percent Auto 0.2 % (0-4); Hemoglobin 11.9 g/dl (12.0-16.0); Imm Gran Abs Auto 0.06 X10*3/uL (0.00-0.03); Imm Gran Pct Auto 0.5 % (0.0-0.4); Lymphocytes Absolute Auto 1.4 X10*3/uL (1.2-4.9); MANUAL DIFF FLAG SCAN; Mean Corpuscular Hemoglobin 30.7 pg (27.0-33.0); Mean Corpuscular Volume 87.9 fL (80-98); Mean Platelet Volume 11.6 fL (9.4-12.3); Monocytes Absolute Auto 1.5 X10*3/uL (0.1-1.2); Monocytes Percent Auto 11.8 % (2-11); Neutrophils Absolute Auto 9.8 X10*3/uL (2.0-8.3); Neutrophils Percent Auto 76.1 % (45-73); Platelet Count 204 X10*3/uL (160-400); Red Blood Count 3.87 X10*6/uL (4.20-5.50); SCAN SMEAR FLAG 1; White Blood Count 12.8 X10*3/uL (4.8-10.8)
[2020-11-22] MEDS: Omeprazole 40 MG CAPSULE.DR PO (06:50)
[2020-11-22 07:07] LABS: Alanine Aminotransferase 48 U/L (0-31); Alkaline Phosphatase 61 U/L (39-117); Anion Gap 15 (12-20); Aspartate Amino Transferase 41 U/L (5-31); Bilirubin Direct 0.6 mg/dL (0.0-0.5); Bilirubin Total 0.9 mg/dL (0.0-1.0); Blood Urea Nitrogen 5 mg/dL (9-16); Calcium 8.4 mg/dL (8.4-10.2); Carbon Dioxide 21 mmol/L (22-29); Chloride 104 mmol/L (96-108); Estimated Glomerular Filt Rate 56; Glucose Random 122 mg/dL (60-115); Potassium 3.2 mmol/L (3.3-5.1); Sodium 137 mmol/L (135-145)
[2020-11-22 07:14] LABS: SLIDE REVIEW VERIFIED
[2020-11-22 07:17] LABS: Albumin Level 3.8 g/dL (3.5-5.0); Total Protein 6.3 g/dL (6.5-8.0)
[2020-11-22] MEDS: Potassium Chloride ER 20 MEQ TAB.ER.PRT PO (08:04)
[2020-11-22] MEDS: Butalb/Acetamin/Caff 50/325/40 TABLET 1 TAB PO (08:06)
--- NOTE | 2020-11-22 12:41 | P.PNIM_ITS ---
Subjective Subjective Date of Service: 11/22/20 Interval History: Being followed for sepsis due to UTI, patient complaining of weakness, mild nausea, headache has improved, noted to have borderline low blood pressure this morning, denies lightheadedness or dizziness. Review of Systems General? headache, no dizziness, no fevers, no chills CVS no chest pain, no palpitation.? Respiratory no cough, no sputum production, no respiratory distress.? Gastrointestinal complain of nausea, no vomiting, no abdominal pain Skin denies rash dysuria improved Review of Systems: Yes all other systems are reviewed and are negative Physical Exam Vital Signs: Vital Signs: Last Vital Signs Temp 97.1 F 11/22/20 11:41 Pulse 69 11/22/20 11:41 Resp 18 11/22/20 11:41 BP 90/49 L 11/22/20 11:41 Pulse Ox 100 11/22/20 11:41 Body Mass Index 31.7 General axox3 , no acute distress.? Neck supple ,no JVD. CVS? regular rate rhythm, Respiratory lungs clear to auscultation, no respiratory distress, no wheeze, no rhonchi. Gastrointestinal abdomen soft, nontender, bowel sounds audible, no guarding , no rigidity. Extremities no edema. Neuro nonfocal Skin no rash Psych appropriate affect Objective Data Active Medications Acetaminophen (Acetaminophen 325 Mg Tablet) 650 mg PO Q6H PRN PRN Reason: Pain, Mild (Pain Scale 1-3) Last Admin: 11/21/20 07:25 Dose: 650 mg Documented by: RAMON Acetaminophen/Butalbital/Caffeine (Butalb/Acetamin/Caff 50/325/40 Tablet) 1 tab PO Q6H PRN PRN Reason: Headache Last Admin: 11/22/20 08:06 Dose: 1 tab Documented by: MARBELLA Al Hydroxide/Mg Hydroxide (Magnesium Hydrox/Alum Hydrox 30 Ml Oral.Susp) 15 ml PO Q4H PRN PRN Reason: abdominal pain Docusate Sodium (Docusate Sodium 100 Mg Capsule) 100 mg PO DAILY PRN PRN Reason: Constipation Ceftriaxone Sodium 1 gm/ (Sodium Chloride) 50 mls @ 100 mls/hr IV Q24H [facility] Last Infusion: 11/21/20 13:31 Dose: 0 mls/hr Documented by: HO.KODOSOB Potassium Chloride/Sodium Chloride () 20 meq in 1,000 mls @ 125 mls/hr IVCONT .Q8H [facility] Last Admin: 11/22/20 08:03 Dose: 125 mls/hr Documented by: MARBELLA Omeprazole (Omeprazole 40 Mg Capsule.Dr) 40 mg PO DAILY@0630 [facility] Last Admin: 11/22/20 06:50 Dose: 40 mg Documented by: AUBREY Ondansetron HCl (Ondansetron Hcl 4 Mg/2 Ml Vial) 4 mg IVPUSH Q8H PRN PRN Reason: Nausea and Vomiting Last Admin: 11/22/20 02:09 Dose: 4 mg Documented by: AUBREY Pharmacy Consult (Consult Rx Vancomycin Dosing) 1 each MISCELLANE DAILY PRN PRN Reason: Consult order Sodium Chloride (0.9 % Sodium Chloride Flush 3 Ml Syringe) 3 ml IVFLUSH QSHIFT [facility] Last Admin: 11/22/20 08:03 Dose: 3 ml Documented by: MARBELLA Labs CBC & Chem 7: 11/22/20 05:50 11/22/20 05:50 Labs: Laboratory Results - last 24 hr 11/22/20 11/22/20 05:50 05:50 MCV 87.9 MCH 30.7 MCHC 35.0 RDW 13.0 Plt Count 204 MPV 11.6 Immature Gran % (Auto) 0.5 H Neut % (Auto) 76.1 H Lymph % (Auto) 11.0 L [place] % (Auto) 11.8 H Eos % (Auto) 0.2 Baso % (Auto) 0.4 Lymph # (Auto) 1.4 [place] # (Auto) 1.5 H Eos # (Auto) 0.0 Baso # (Auto) 0.1 Abs Immat Gran (auto) 0.06 H Absolute Neuts (auto) 9.8 H Absolute Nucleated RBC 0.000 Nucleated RBC % (auto) 0.0 Smear Tech's Comments VERIFIED Anion Gap 15 Estim Creat Clear Calc 77.0 Estimated GFR 56 Random Glucose 122 H Calcium 8.4 Total Bilirubin 0.9 Direct Bilirubin 0.6 H AST 41 H ALT 48 H Alkaline Phosphatase 61 Total Protein 6.3 L D Albumin 3.8 D Microbiology Microbiology Results: Microbiology 11/20/20 Unknown Urine Culture - Final Urine clean catch - Urine edwards top Escherichia coli 11/21/20 01:30 Blood Culture - Preliminary Blood - Venous No growth after 24 hours. 11/21/20 01:30 Blood Culture - Preliminary Blood - Venous No growth after 24 hours. Assessment and Plan (1) UTI (urinary tract infection): Status: Acute (2) Sepsis: Status: Acute (3) Abdominal pain with vomiting: Status: Acute Assessment and Plan: 20-year-old with no significant past medical history presents to the hospital with complaints of abdominal pain and intractable nausea vomiting found to have sepsis # sepsis due to urinary tract infection ?? Tachycardia resolved, WBC trending down, had low-grade fever in last 24 hours, all other symptoms of headache chills and dysuria improved abdominal CT and pelvic negative, chest x-ray benign, abdominal ultrasound showed no evidence of gallbladder disease, UA shows trace leukocyte Estrace , 1+ bacteria, blood culture x2 negative ?? Urine culture growing E coli continue IV ceftriaxone day 2 ? Low blood pressure likely due to poor by mouth intake, no other features of severe sepsis, renal function stable will give IV fluids and encourage by mouth fluid # abdominal pain and vomiting - possibly due to UTI , improving continue as needed antiemetics # intractable headache ?? Improved continue as needed Fioricet # obesity low-calorie diet recommended, inform risk of diabetes hypertension and hypercholesterolemia. DVT prophylaxis:? Early ambulation Quality Stroke Does the patient have a stroke diagnosis?: No VTE Prior VTE?: No VTE Risk Level:: Medical - moderate - high VTE Device Contraindication: Treatment Not Indicated VTE Drug Contraindication: N/A - Med Ordered
[2020-11-22] MEDS: cefTRIAXone sodium 1 GM in 0.9 % Sodium Chloride 50 ML IV (15:00)
[2020-11-23] VITALS: BP 118/59; PULSE 84; RESP 16; TEMP 37.4; O2SAT 98
[2020-11-23 04:00] VITALS: BP 99/54; PULSE 70; RESP 16; TEMP 37.2; O2SAT 97
[2020-11-23 06:05] LABS: MANUAL DIFF FLAG NO
[2020-11-23 06:08] LABS: Basophils Percent Auto 0.5 % (0-2); Eosinophils Absolute Auto 0.1 X10*3/uL (0.0-0.4); Eosinophils Percent Auto 0.9 % (0-4); Hematocrit 31.3 % (37-47); Hemoglobin 10.9 g/dl (12.0-16.0); Imm Gran Abs Auto 0.02 X10*3/uL (0.00-0.03); Imm Gran Pct Auto 0.2 % (0.0-0.4); Lymphocytes Absolute Auto 2.2 X10*3/uL (1.2-4.9); Mean Corpuscular HGB Conc 34.8 g/dl (31.0-35.0); Mean Corpuscular Hemoglobin 30.9 pg (27.0-33.0); Mean Corpuscular Volume 88.7 fL (80-98); Mean Platelet Volume 11.2 fL (9.4-12.3); Monocytes Absolute Auto 1.2 X10*3/uL (0.1-1.2); Monocytes Percent Auto 14.2 % (2-11); Neutrophils Absolute Auto 4.9 X10*3/uL (2.0-8.3); Neutrophils Percent Auto 58.2 % (45-73); Platelet Count 186 X10*3/uL (160-400); Red Blood Count 3.53 X10*6/uL (4.20-5.50); Red Cell Distribution Width 13.1 % (11.0-16.0); White Blood Count 8.5 X10*3/uL (4.8-10.8)
[2020-11-23 06:27] LABS: Anion Gap 13 (12-20); Blood Urea Nitrogen 4 mg/dL (9-16); Calcium 8.1 mg/dL (8.4-10.2); Carbon Dioxide 23 mmol/L (22-29); Chloride 109 mmol/L (96-108); Creatinine Clr Calc Pharmacy 104.7; Estimated Glomerular Filt Rate > 60; Glucose Random 100 mg/dL (60-115); Potassium 3.8 mmol/L (3.3-5.1); Sodium 141 mmol/L (135-145)
[2020-11-23] MEDS: Omeprazole 40 MG CAPSULE.DR PO (06:45)
[2020-11-23 06:48] VITALS: BP 176/90
[2020-11-23 07:18] VITALS: BP 91/54; PULSE 70; RESP 16; TEMP 36.4; O2SAT 98
--- NOTE | 2020-11-23 11:05 | PM.DS ---
DS: Providers Provider Date of Service: 11/23/20 Date of admission: 11/22/20 11:30 Primary care physician: Yani Prieto MD Consults: 11/21/20 06:26 Consult to Infectious Diseases Routine Consulting Provider: Shellie Castro Reason for consultation: sepsis of unknown etiology Has provider been notified: No DS: Diagnosis Discharge Diagnosis (1) UTI (urinary tract infection): Status: Acute (2) Sepsis: Status: Acute (3) Abdominal pain with vomiting: Status: Acute DS: Summary Hospital Course Hospital Course: History of presenting illness Chief Complaint: abdominal pain, N/V This is a 20-year-old female with no significant past medical history presents to the hospital with complaints of intractable vomiting as well as abdominal pain.? Patient reports her symptoms started 3 days ago, she has significant nausea vomiting, migraine headache,, she is complaining of epigastric abdominal pain that started around the same time.? Reports that her vomiting is nonbloody, she denies any history of heartburn.? The abdominal pain is severe, 10/10, nonradiating, constant, relieved with pain medication, and worsened with anything that she eats.? patient denies using any [id number] NSAIDs, denies history of drug use, no alcohol use. She denies any chest pain, no shortness of breath, no cough, no diarrhea constipation, no urinary symptoms including no dysuria no frequency and urgency.? And no lower extremity edema.? She denies the possibility of being .? Denies any vaginal discharge. On arrival to the ED patient hemodynamically stable with a temp of 100.8, heart rate of 93, respiratory rate of 18, blood pressure 116/61, satting 99% on room air, she did eventually develop a fever 103.2, heart rate of 110, respiratory rate of 112, ?18.9, sodium of 134, AST of 35, ALT of 33, bili of 2.1, UA that is positive for trace leukocyte Estrace no WBC and no nitrites, COVID-19 negative Patient underwent both abdominal pelvic CT as well as ultrasound of the abdomen showed no acute findings in the abdomen or pelvis, and normal ultrasound exam Given her sepsis patient will be admitted for further management Hospital course 20-year-old with no significant past medical history presents to the hospital with complaints of abdominal pain and intractable nausea vomiting found to have sepsis, patient initially declined urinary symptoms however later complain of dysuria and frequency patient met sepsis criteria due to tachycardia and leukocytosis UA mildly positive however urine culture grew E coli patient treated with IV ceftriaxone now being discharged home on by mouth Ceftin, patient has been recommended to drink plenty of fluids take Tylenol for fever and headache, all symptoms of headache abdominal pain nausea vomiting has resolved with symptomatic treatment with antiemetics and Fioricet. obesity low-calorie diet recommended Time Spent with Patient Time attestation: Total time spent providing and/or coordinating discharge services: Discharge coordination time: Greater than 30 minutes Quality: Stroke Does the patient have a stroke diagnosis?: No Physical Exam Vital Signs: Vital Signs: Last Vital Signs Temp 97.6 F 11/23/20 07:18 Pulse 70 11/23/20 07:18 Resp 16 11/23/20 07:18 BP 91/54 L 11/23/20 07:18 Pulse Ox 98 11/23/20 07:18 Body Mass Index 31.7 General axox3 , no acute distress.? Neck supple ,no JVD. CVS? regular rate rhythm, Respiratory lungs clear to auscultation, no respiratory distress, no wheeze, no rhonchi. Gastrointestinal abdomen soft, nontender, bowel sounds audible, no guarding , no rigidity. Extremities no edema. Neuro nonfocal Skin no rash Psych appropriate affect DS: Data Data Completed and Pending Labs on day of discharge: Laboratory Results - last 24 hr 11/23/20 11/23/20 05:41 05:41 WBC 8.5 RBC 3.53 L Hgb 10.9 L Hct 31.3 L MCV 88.7 MCH 30.9 MCHC 34.8 RDW 13.1 Plt Count 186 MPV 11.2 Immature Gran % (Auto) 0.2 Neut % (Auto) 58.2 Lymph % (Auto) 26.0 [place] % (Auto) 14.2 H Eos % (Auto) 0.9 Baso % (Auto) 0.5 Lymph # (Auto) 2.2 [place] # (Auto) 1.2 Eos # (Auto) 0.1 Baso # (Auto) 0.0 Abs Immat Gran (auto) 0.02 Absolute Neuts (auto) 4.9 Absolute Nucleated RBC 0.000 Nucleated RBC % (auto) 0.0 Sodium 141 Potassium 3.8 Chloride 109 H Carbon Dioxide 23 Anion Gap 13 BUN 4 L Creatinine 0.89 Estim Creat Clear Calc 104.7 Estimated GFR > 60 Random Glucose 100 Calcium 8.1 L Preliminary micro results at discharge 11/21/20 01:30 Blood Culture - Preliminary Blood - Venous No growth after 48 hours. 11/21/20 01:30 Blood Culture - Preliminary Blood - Venous No growth after 48 hours. Discharge Plan Discharge Patient Disposition: Home, Self-Care Discharge Diagnosis: Sepsis due to UTI Referrals: Yani Prieto MD [Primary Care Provider] - 1 Week Discharge Medications: New cefuroxime axetil 500 mg Tablet 500 mg PO Q12H Qty: 7 RF: 0 Discharge Orders: Discharge Order (Routine); Ordered 11/23/20 Ordered By: Shari Veliz Diet: advance to usual diet Activity on Discharge: As tolerated Stand Alone Forms: Patient Portal Discharge page Care Plan Goals: Take Ceftin twice daily as directed, drink plenty of fluids take Tylenol for fever or pain Health Concerns: None Plan of Treatment: Outpatient follow-up with primary care physician in 1 week Assessment: as above
--- NOTE | 2020-11-23 11:39 | MHC.CM.PN ---
PT CLEARED TO DC HOME TODAY WITH NO SERVICES PT TO ARRANGE TRANSPORT
== END 2020-11-23 12:51 | disposition home or self-care (01) | DRG 720 ==
LOC: HO.ED 22:01 → HO.S3 11-21 00:11
PROVIDERS: Admitting Provider Internal Medicine; Emergency Provider Emergency Medicine; PCP Pediatrics Adolescent Medicine; Visit Provider Hospitalist
DX: A41.9 Sepsis, unspecified organism (principal); D72.829 Elevated white blood cell count, unspecified; E66.9 Obesity, unspecified; E87.6 Hypokalemia; Z68.31 Body mass index [BMI] 31.0-31.9, adult; N39.0 Urinary tract infection, site not specified; F17.210 Nicotine dependence, cigarettes, uncomplicated; Z20.822 Contact with and (suspected) exposure to COVID-19; Z71.6 Tobacco abuse counseling
CPT/HCPCS: 0241U; 36415; 70450; 71045; 74176; 76705; 80048; 80053; 80076; 81001; 81025; 83605; 85025; 87040; 87086; 87088; 87186; 99285; J0295; J0692; J0696; J1650; J1885; J2405; J2543; J3370